=== PATIENT | female | born 1950 | race Caucasian/White ===

== ENCOUNTER 2016-08-17 09:00 | Outpatient (RCR) | payer BC ==
[~2016-08-17 09:00] MED LIST: ACTIVELLA TABLE1 TAB PO; ALEVE 220MG220 MG PO; AQUADEKS PO; AYR SALINE MIST50 ML NS; COMBIRESP IH; RT ADVAIR 128 DISKUS IH; SALINE; ZYRTEC5 MG PO
== END 2016-08-19 | disposition still patient (30) ==
LOC: WSPT
DX: M70.61 Trochanteric bursitis, right hip (principal); M46.86 Other specified inflammatory spondylopathies, lumbar region

== ENCOUNTER 2016-08-22 11:51 | Outpatient (RCR) | payer BC | END 2016-09-12 12:49 | disposition home or self-care (01) | LOC: WSPT 11:51 | DX: M16.11 Unilateral primary osteoarthritis, right hip (principal) ==

== ENCOUNTER → 2016-11-02 | Outpatient (CLI) | payer BC | LOC: MC.RAD 14:58 | DX: Z12.31 Encounter for screening mammogram for malignant neoplasm of breast (principal) ==

== ENCOUNTER → 2017-12-27 | Outpatient (CLI) | payer BC | LOC: MC.RAD 14:20 | DX: Z12.31 Encounter for screening mammogram for malignant neoplasm of breast (principal) ==

== ENCOUNTER → 2019-01-30 | Outpatient (CLI) | payer BC | LOC: MC.RAD 14:45 | DX: Z12.31 Encounter for screening mammogram for malignant neoplasm of breast (principal) ==

== ENCOUNTER → 2020-09-06 | Outpatient (CLI) | payer BC | LOC: MC.RAD 10:41 | DX: Z12.31 Encounter for screening mammogram for malignant neoplasm of breast (principal); N64.89 Other specified disorders of breast; R92.8 Other abnormal and inconclusive findings on diagnostic imaging of breast ==

== ENCOUNTER → 2020-09-09 | Outpatient (CLI) | payer BC | LOC: MC.RAD 13:00 | DX: N63.20 Unspecified lump in the left breast, unspecified quadrant (principal) ==

== ENCOUNTER → 2020-09-14 | Outpatient (CLI) | payer BC | LOC: MC.RAD 08:30 | DX: N64.89 Other specified disorders of breast (principal); N63.20 Unspecified lump in the left breast, unspecified quadrant ==

== ENCOUNTER 2022-01-10 09:59 | Outpatient (CLI) | payer MEDICARE, OTHER ==
[~2022-01-10] VITALS: Ht 157.5 cm; Wt 56.8 kg
[~2022-01-10 09:59] MED LIST changes: -AQUADEKS PO; +AQUADEKS1 CTB PO; +D3-5050000 IU PO; +INCRUSE EL62.5 MCG/A IH; +PROBIOTIC BLEN1 EACH PO; -SALINE; +SALINE INH; +[UNRECOGNIZED DRUG - OTHER] PO
[2022-01-10 10:34] VITALS: BP 115/79; PULSE 73; TEMP 98.3
== END 2022-01-10 10:52 | disposition home or self-care (01) ==
LOC: EUO 09:59
DX: C50.912 Malignant neoplasm of unspecified site of left female breast (principal)
CPT/HCPCS: J1644

== ENCOUNTER 2022-04-02 16:13 | Outpatient (CLI) | payer MEDICARE, OTHER ==
[~2022-04-02] VITALS: Ht 157.5 cm; Wt 57.8 kg
[2022-04-02 16:26] VITALS: BP 127/83; PULSE 68; TEMP 98
== END 2022-04-02 17:36 | disposition home or self-care (01) ==
LOC: EUO 16:13
DX: C50.912 Malignant neoplasm of unspecified site of left female breast (principal)
CPT/HCPCS: J1644

== ENCOUNTER 2022-11-06 14:05 | Outpatient (CLI) | payer MEDICARE, OTHER ==
[~2022-11-06] VITALS: Ht 157.5 cm; Wt 58.4 kg
[~2022-11-06 14:05] MED LIST changes: -AQUADEKS1 CTB PO; +CENTRUM CHEWAB1 EAC4 PO; +ONE-A-DAY ACTIV1 TAB PO; +SINGULAIR 110 MG/TAB PO
[2022-11-06 14:34] VITALS: BP 114/72; PULSE 85; TEMP 98.3
[2022-11-06] MEDS ORDERED: XOPENEX HF0.045 MG/A IH (14:39)
[2022-11-06] MEDS ORDERED: STRIVERDI2.5 MCG/Ac IH (14:39)
[2022-11-06] MEDS ORDERED: ALEVE 220MG220 MG PO (14:40)
[2022-11-06] MEDS ORDERED: ZYRTEC 10MG10 MG PO (14:40)
[2022-11-06] MEDS ORDERED: [UNRECOGNIZED DRUG - CODE] PO (14:41)
[2022-11-06] MEDS ORDERED: MULTIVITAMIN FO1 CAP PO (14:42)
[2022-11-06] MEDS ORDERED: COMPLETE MULTI1 TAB PO (14:44)
[2022-11-06] MEDS ORDERED: AYR SALINE MIST50 ML NS (14:46)
--- NOTE | 2022-11-06 15:00 | NUR ---
Port accessed and flushed per protocol, then deaccessed. Site covered with bandaid. Next appt scheduled. Pt exits dept with steady gait.
== END 2022-11-06 15:00 | disposition home or self-care (01) ==
LOC: EUO 14:05
DX: C50.912 Malignant neoplasm of unspecified site of left female breast (principal)
CPT/HCPCS: J1644

== ENCOUNTER 2022-12-21 12:08 | Outpatient (CLI) | payer MEDICARE, OTHER ==
[~2022-12-21] VITALS: Ht 157.5 cm; Wt 57.7 kg
[~2022-12-21 12:08] MED LIST changes: +COMPLETE MULTI1 TAB PO; +MULTIVITAMIN FO1 CAP PO; +STRIVERDI2.5 MCG/Ac IH; +XOPENEX HF0.045 MG/A IH; +ZYRTEC 10MG10 MG PO; +[UNRECOGNIZED DRUG - CODE] PO
[2022-12-21] MEDS ORDERED: OSCAL 500 TAB500 MG PO (12:46)
[2022-12-21] MEDS ORDERED: [UNRECOGNIZED DRUG - OTHER] PO (12:47)
[2022-12-21] MEDS ORDERED: ZYRTEC 10MG10 MG PO (12:48)
[2022-12-21] MEDS ORDERED: TRIKAFTA 100-51 EACH PO (12:48)
[2022-12-21 12:56] VITALS: BP 124/74; PULSE 74; TEMP 98.2
== END 2022-12-21 13:21 ==
LOC: EUO 12:08
DX: Z45.2 Encounter for adjustment and management of vascular access device (principal)
CPT/HCPCS: J1644

== ENCOUNTER 2023-04-26 13:06 | Outpatient (CLI) | payer MEDICARE, OTHER ==
[~2023-04-26 13:06] MED LIST changes: +OSCAL 500 TAB500 MG PO; +TRIKAFTA 100-51 EACH PO; +[UNRECOGNIZED DRUG - OTHER] PO
[2023-04-26 13:31] VITALS: BP 129/79; PULSE 71; TEMP 98.4
[2023-04-26] MEDS ORDERED: CENTRUM ADULT80 MCG PO (13:35)
--- NOTE | 2023-04-26 13:50 | NUR ---
Port accessed, flushed and deaccessed. Site covered with bandaid. Pt tolerated well. She exits dept with steady gait, free of complaints at discharge.
== END 2023-04-26 13:50 | disposition home or self-care (01) ==
LOC: EUO 13:06
DX: Z45.2 Encounter for adjustment and management of vascular access device (principal); C50.912 Malignant neoplasm of unspecified site of left female breast
CPT/HCPCS: J1644

== ENCOUNTER 2023-08-09 16:06 | Outpatient (CLI) | payer MEDICARE, OTHER ==
[~2023-08-09] VITALS: Ht 157.5 cm; Wt 55.9 kg
[~2023-08-09 16:06] MED LIST changes: +CENTRUM ADULT80 MCG PO
[2023-08-09 16:19] VITALS: BP 98/62; PULSE 80; TEMP 97.2
== END 2023-08-09 16:29 | disposition home or self-care (01) ==
LOC: EUO 16:06
DX: Z45.2 Encounter for adjustment and management of vascular access device (principal)
CPT/HCPCS: J1644

== ENCOUNTER → 2023-10-28 | Outpatient (CLI) | payer MEDICARE, OTHER | LOC: MC.RAD 14:00 | DX: C50.912 Malignant neoplasm of unspecified site of left female breast (principal) ==